=== PATIENT | female | born 1990 | race Caucasian/White ===

== ENCOUNTER 2020-03-28 07:47 | Outpatient (REF) | payer OTHER, SELFPAY ==
[2020-03-28 09:29] LABS: COVID-19 Test Negative (Negative)
== END 2020-03-28 07:48 | disposition home or self-care (01) ==
LOC: HO.LAB 07:47
PROVIDERS: Visit Provider Internal Medicine
DX: Z20.828 Contact with and (suspected) exposure to other viral communicable diseases (principal)
CPT/HCPCS: 87635; C9803

== ENCOUNTER 2020-04-03 13:09 | Outpatient (REF) | payer OTHER, SELFPAY ==
[2020-04-04 06:16] LABS: COVID-19 Test Negative (Negative); IDNOW Serial# 55D5AD1C
== END 2020-04-03 13:10 | disposition home or self-care (01) ==
LOC: HO.EMPCOV 13:09
PROVIDERS: PCP Internal Medicine; Visit Provider Internal Medicine
DX: Z20.828 Contact with and (suspected) exposure to other viral communicable diseases (principal)
CPT/HCPCS: 87635; C9803

== ENCOUNTER 2020-04-08 07:53 | Outpatient (REF) | payer OTHER, SELFPAY ==
[2020-04-08 09:10] LABS: COVID-19 Test Negative (Negative)
== END 2020-04-08 07:54 | disposition home or self-care (01) ==
LOC: HO.EMPCOV 07:53
PROVIDERS: PCP Internal Medicine; Visit Provider Internal Medicine
DX: Z20.828 Contact with and (suspected) exposure to other viral communicable diseases (principal)
CPT/HCPCS: 87635; C9803

== ENCOUNTER 2020-04-18 07:46 | Outpatient (REF) | payer OTHER, SELFPAY ==
[2020-04-18 08:06] LABS: COVID-19 Test Negative (Negative)
== END 2020-04-18 07:47 | disposition home or self-care (01) ==
LOC: HO.EMPCOV 07:46
PROVIDERS: Visit Provider Internal Medicine
DX: Z20.828 Contact with and (suspected) exposure to other viral communicable diseases (principal)
CPT/HCPCS: 87635; C9803

== ENCOUNTER 2020-07-12 08:08 | Outpatient (REF) | payer OTHER, SELFPAY ==
[2020-07-12 08:31] LABS: COVID-19 Test Negative (Negative)
== END 2020-07-12 08:09 | disposition home or self-care (01) ==
LOC: HO.EMPCOV 08:08
PROVIDERS: Visit Provider Internal Medicine
DX: Z20.822 Contact with and (suspected) exposure to COVID-19 (principal)
CPT/HCPCS: 36415; 87635; C9803

== ENCOUNTER → 2020-11-07 10:50 | Outpatient (BNVA) | payer OTHER, SELFPAY | PROVIDERS: PCP Internal Medicine; Referring Provider Internal Medicine; Visit Provider Surgery ==

== ENCOUNTER 2020-11-20 07:33 | Day surgery (SDC) | payer OTHER, SELFPAY ==
--- NOTE | 2020-11-19 08:20 | P.CONAN_ITS ---
Documented by User: Brianna Tyler 11/19/20 08:26 HPI - Anesthesia Eval Consult details Narrative: 30yo F for Cholecystectomy Laparoscopic, Poss Open [facility] Active Problems Active Problems: All Active Problems (Updated 11/07/20 @ 12:21 by Darius Gamino MD) Cholecystitis, acute with cholelithiasis (Acute) Gallstones (Acute) GERD (gastroesophageal reflux disease) (Acute) Past Medical History Medical History Gallstones GERD (gastroesophageal reflux disease) Surgical History Surgical History History of in vitro fertilization Social History Social History Alcohol intake: never Patient Tobacco Use Status: Never used Tobacco Second Hand Smoke Exposure: No Use of substances other than those prescribed or required for medical reasons: No Are you DNR?: No Advance Directives: No Advance Directives Information Provided: Yes Advance Directives on File: No Nutrition Risks: No Nutritional Risk Meds Allergies Allergy/AdvReac Type Severity Reaction Status Date / Time No Known Allergies Allergy Unverified 01/25/20 16:51 [No Known Allergies*] Home Medications Medication Instructions Recorded Confirmed Last Taken Type vitamin with calcium 1 tab PO DAILY 11/07/20 11/07/20 Unknown History no.72-iron 27 mg-folic acid 1 mg tablet Exam Exam Date and Time: November 19, 2020 0820 Pertinent Lab Results Pertinent Lab Results: Labs reviewed from [facility]. CBC, BMP. LIVP elevated. Assessment and Plan Assessment Anesthesia Assessment: Chart Reviewed Documented by User: Duran Campos MD 11/20/20 09:07 [facility] Past Medical History Medical History Gallstones GERD (gastroesophageal reflux disease) Family History Family history of problems with anesthesia: No Surgical History Surgical History History of in vitro fertilization History of Problems with Anesthesia: No Social History Social History Alcohol intake: never Patient Tobacco Use Status: Never used Tobacco Second Hand Smoke Exposure: No Use of substances other than those prescribed or required for medical reasons: No Are you DNR?: No Advance Directives: No Advance Directives Information Provided: Yes Advance Directives on File: No Nutrition Risks: No Nutritional Risk Meds Allergies Allergy/AdvReac Type Severity Reaction Status Date / Time No Known Allergies Allergy Unverified 01/25/20 16:51 [No Known Allergies*] Home Medications Medication Instructions Recorded Confirmed Last Taken Type vitamin with calcium 1 tab PO DAILY 11/07/20 11/07/20 Unknown History no.72-iron 27 mg-folic acid 1 mg tablet Exam Airway Mallampati Class: I TM Dist: >3cm Neck ROM: Full Loose/Missing/Broken Teeth: No Heart: ok Lungs: ok Assessment and Plan Assessment Anesthesia Assessment: Anesthesia Plan Discussed and Chart Reviewed Final Anesthetic Review NPO: Yes ASA Class: II Final Preanesthetic Review: No Changes in Pt Med Stat, Consent Obtained/Reviewed and Anes Risks/Benef Reviewed Patient Risk: Low Procedure Risk: Intermediate Anesthetic Plan Anesthetic Plan: GA and Agree w/ Assess. and Plan Disposition: Standard PACU
[2020-11-20] VITALS (13 sets, daily range): BP systolic 115–132; BP diastolic 62–78; PULSE 53–77; RESP 16–18; TEMP 36.4–37.3; O2SAT 98–100; BMI 32.9
[2020-11-20 07:51] LABS: UPreg QC Valid YES; Urine Pregnancy NEGATIVE (NEGATIVE)
[2020-11-20] MEDS: Lactated Ringers 1,000 ML 100 ML IVCONT (08:07)
[2020-11-20] MEDS: cefoTEtan disodium 2 GM in 0.9 % Sodium Chloride 50 ML IV (08:07)
--- NOTE | 2020-11-20 08:44 | MHC.SHP ---
Pre-Procedural Eval Section A Date of Service: 11/20/20 The patient is an INPATIENT: No Changes since office visit: Yes Patient answered all questions; No Cold of Flu in the past 2 weeks, No New Medical Problems and No Changes in Medication The History & Physical has been completed within 30 days and I have reviewed it.: Yes Section B Chief Complaint: Cholecystitis, acute with cholelithiasis Allergies: Allergies Allergy/AdvReac Type Severity Reaction Status Date / Time No Known Allergies Allergy Unverified 01/25/20 16:51 [No Known Allergies*] Plan Diagnosis/Plan: Unchanged I have reviewed the history and physical and performed a pertinent physical examination on my patient. No changes have occurred unless specified.
--- NOTE | 2020-11-20 10:22 | P.OP_ITS ---
Operative Note Operative Note Date of Service: 11/20/20 Narrative: Preoperative diagnosis: Symptomatic cholelithiasis Postoperative diagnosis: Same Procedure: Laparoscopic cholecystectomy Surgeon: Darius Gamino MD Chrome Polisher: No physician Anesthesia: General endotracheal Indications for procedure: 30-year-old female with complaints of abdominal pain in the right upper quadrant found to have gallstones within the gallbladder. She presents today for laparoscopic or possible open cholecystectomy. Operative findings: Normal appearing gallbladder with mild adhesions to the undersurface suggestive of a prior history of cholecystitis Specimen: Gallbladder Estimated blood loss: 2 mL Complications: None Procedure details: Patient was brought to the OR and placed in a supine position. After administering general anesthesia the patient's abdomen was prepped with ChloraPrep and draped in a sterile fashion. Local anesthesia consisting of 0.25% Sensorcaine with epinephrine was infiltrated in a periumbilical region. A 5 mm incision was made above the umbilicus in a transverse fashion. The Veress needle was then inserted while elevating abdominal cavity with towel clips. After positive drop test the abdomen was insufflated to a pressure of 15 mm of mercury. The Veress needle was then removed and a 5 mm trocar inserted. The camera was inserted in the abdomen explored. A 12 mm trocar was then placed in the epigastrium and two 5 mm trocars placed in the right upper quadrant. The patient was placed in reverse Trendelenburg positioning and rotated to the left. The gallbladder was grasped with the fundus and retracted cephalad.. The infundibulum was then grasped and retracted away from the liver bed. The Dolphin dissected was then used to dissect the peritoneum off the infundibulum to reveal the junction with the cystic duct. Cystic artery was noted slightly medial and posterior to the cystic duct. After obtaining a critical view the cystic duct was doubly clipped and divided. The cystic artery was then doubly clipped and divided. The gallbladder was then dissected off the liver bed using electrocautery with an L hook. Hemostasis was assured all times using the electrocautery. When the gallbladder is completely dissected off the liver bed was placed in an Endo-Catch bag and brought out through the epigastric incision. The gallbladder was sent to pathology for further examination. The abdomen was then re-examined. The liver bed was irrigated and suctioned dry. No bleeding or bile leak could be identified. CO2 was then evacuated and all trocars removed. Fascia was closed at the epigastric incision using a [id number] 0 Polysorb suture. Skin was closed in all incisions using a subcuticular 4 0 Polysorb suture. Surgical glue was used to close skin. The patient tolerated the procedure well. Sponge instrument and needle counts reported as correct. The patient was transferred to PACU in stable condition.
[2020-11-20] MEDS: Acetaminophen 325 MG TABLET 650 MG PO (10:57)
[2020-11-20] MEDS: oxyCODONE HCl Immed Release 5 MG TABLET PO (10:58)
[2020-11-20] MEDS: fentaNYL citrate/PF 100 MCG/2 ML VIAL 50 MCG IVPUSH ×2 (11:00→11:10)
== END 2020-11-20 12:31 | disposition home or self-care (01) ==
PROVIDERS: Nurse Practitioner; PCP Internal Medicine; Visit Provider Surgery
PROC: 0FT44ZZ Resection of Gallbladder, Percutaneous Endoscopic Approach (ICD-10-PCS; CPT 47562; principal; 2020-11-20 09:10)
DX: K80.12 Calculus of gallbladder with acute and chronic cholecystitis without obstruction (principal); K82.8 Other specified diseases of gallbladder; K21.9 Gastro-esophageal reflux disease without esophagitis
CPT/HCPCS: 47562; 81025; 88304; J1100; J1885; J2250; J2405; J3010

== ENCOUNTER → 2020-11-28 09:37 | Outpatient (BNVA) | payer OTHER, SELFPAY | PROVIDERS: PCP Internal Medicine; Referring Provider Internal Medicine; Visit Provider Surgery ==

== ENCOUNTER 2021-02-27 08:29 | Outpatient (REF) | payer OTHER, SELFPAY ==
[2021-02-27 09:29] LABS: TSH reflex Free T4 1.45 uIU/mL (0.32-4.0)
== END 2021-02-27 08:30 | disposition home or self-care (01) ==
LOC: HO.LAB 08:29
PROVIDERS: PCP Internal Medicine; Visit Provider Nurse Practitioner Family
DX: F41.8 Other specified anxiety disorders (principal)
CPT/HCPCS: 36415; 84443

== ENCOUNTER 2021-05-12 09:55 | Outpatient (REF) | payer OTHER, SELFPAY ==
[2021-05-12 10:40] LABS: COVID-19 Test Positive (Negative); IDNOW Serial# 16C4AD1C
== END 2021-05-12 09:56 | disposition home or self-care (01) ==
LOC: HO.LAB 09:55
PROVIDERS: Visit Provider Internal Medicine
DX: Z20.822 Contact with and (suspected) exposure to COVID-19 (principal)
CPT/HCPCS: 36415; 87635; C9803

== ENCOUNTER 2024-03-06 17:00 | Outpatient (AMB) | payer OTHER, SELFPAY ==
[2024-03-06 17:12] VITALS: BP 122/80; BMI 37.6
--- NOTE | 2024-03-06 17:12 | MHC.PC.OV ---
Vital Signs 03/06/24 17:12 Height 5 ft 3 in Weight 212 lb BMI 37.6 BP 122/80 Blood Pressure Location Lt brachial Position Sitting Intake Visit Reasons: PE Intake Note: Patient here for a physical exam Hamper Maker Required: No Accompanied by: Child Allergies No Known Allergies [No Known Allergies*] Allergy (Verified 03/06/24 17:23) Medication List - Last Reconciled 03/06/24 by Ankita Romero MD No Known Home Meds Tobacco use date assessed: 03/06/24 Dental Screening Dental Screen Date: 03/06/24 Did you have a dental visit in the last 12 months?: Yes Did you have a dental problem in the last 6 months where you did not have access to dental care?: No Was dental information given to patient?: Patient has dentist HPI HPI Comments History of Present Illness Details This is a 33 year old female with recurrent mild major depression with anxiety that comes for her physical exam. Last Pap smear was 2 years ago and was normal as per patient. No acute complaints. Depression with anxiety are in remission. [facility] Medical History (Updated 03/06/24 @ 17:29 by Ankita Romero MD) Recurrent mild major depressive disorder with anxiety Gallstones GERD (gastroesophageal reflux disease) Surgical History S/P laparoscopic cholecystectomy (11/20/20) History of in vitro fertilization Family History Mother No problems noted. Father No problems noted. Social History Housing: House Alcohol intake: never Patient Tobacco Use Status: Never used Tobacco e-Cigarette/Vaping Use: Never Used Second Hand Smoke Exposure: No service: No Current occupational status: employed Current occupational exposures/hazards: No Cognitive needs: No Hearing needs: No Vision needs: No Questionnaire PHQ-9 Over the last 2 weeks, how often have you been bothered by any of the following problems? 1. Little interest or pleasure in doing things: not at all 2. Feeling down, depressed, or hopeless: several days 3. Trouble falling or staying asleep, or sleeping too much: not at all 4. Feeling tired or having little energy: not at all 5. Poor appetite or overeating: not at all 6. Feeling bad about yourself - or that you are a failure or have let yourself or your family down: not at all 7. Trouble concentrating on things, such as reading the newspaper or watching television: not at all 8. Moving or speaking so slowly that other people could have noticed. Or the opposite - being so fidgety or restless that you have been moving around a lot more than usual: not at all 9. Thoughts that you would be better off or of hurting yourself in some way: not at all Total score: 1 Depression Screening Interpretation: Negative Depression Screening Done: Yes 41689 - PHQ-9 Billing: Yes Source: Developed by Drs. Kevin Carter, Cele Freire, Trey Yanes and colleagues, with an educational pawel from [employer]. Thrive Questionnaire Date Thrive assessed: 03/02/24 I am a: Patient What is your living situation today?: I have a steady place to live Within the past 12 months, did the food you bought not last and you didn't have the money to get more?: Never true Within the past 12 months, did you worry whether your food would run out before you got money to buy more?: Never true Do you have trouble paying for medicines?: No Do you have trouble getting transportation to medical appointments?: No Do you have trouble paying your heating and electricity bill?: No Do you have trouble taking care of your child, family member or friend?: No Do you have trouble with day-to-day activities such as bathing, preparing meals, shopping, managing finances, etc.?: No Are you currently unemployed and looking for a job?: No Are you interested in more education?: No Please select the resources that you would like help with: None Currently or been in a relationship where the following occur: No concerns reported THRIVE Score: 0 AUDIT C Alcohol Use Questionnaire (AUDIT-C) 1. How often do you have a drink containing alcohol?: Monthly or less 2. How many drinks containing alcohol do you have on a typical day when you are drinking?: 3 or 4 3. How often do you have six or more drinks on one occasion?: Never Total Score: 2 Score Reviewed/Action Taken: No SARA-7 AMB Questionnaire SARA-7 Date SARA - 7 assessed: 03/06/24 Feeling nervous, anxious, or on edge: 1 = Several days Not being able to stop or control worryin = Several days Worrying too much about different things: 1 = Several days Trouble relaxin = Several days Being so restless that it is hard to sit still: 1 = Several days Becoming easily annoyed or irritable: 1 = Several days Feeling afraid as if something awful might happen: 0 = Not at all Total SARA-7 score (0-4 normal; 5-9 mild; 10-14 moderate; 15-21 severe): 6 Source: Developed by Drs. Kevin Carter, Cele Freire, Trey Yanes and colleagues, with an educational pawel from [employer]. SARA-7 Assessment Billing SARA-7 Assessment Tool: SARA-7 Assessment 96240 Review of Systems Const All systems reviewed & are unremarkable except as noted in HPI and below Card Denies chest pain at rest, Denies chest pain with activity, Denies edema, Denies irregular heart rhythm, Denies claudication, Denies dyspnea, Denies dyspnea on exertion, Denies orthopnea, Denies paroxysmal nocturnal dyspnea and Denies slow heart rate Resp Denies cough, Denies dyspnea and Denies dyspnea on exertion GI Denies abdominal pain, Denies change in bowel habits, Denies excessive flatus, Denies nausea and Denies vomiting Neuro Denies lack of coordination Physical exam (Primary Care) Vital Signs: Last Vital Signs BP 122/80 03/06/24 17:12 BMI result Body Mass Index 37.6 BMI Assessment/Plan discussion: High BMI High, discussed plan: lifestyle, weight reduction, dietary and physical activity Tobacco/Smoking Status: Tobacco use Status Tobacco use date assessed 03/06/24 03/06/24 17:16 Patient Tobacco Use Status Never used Tobacco 03/06/24 17:16 e-Cigarette/Vaping Use Never Used 03/06/24 17:16 PHQ-9: PHQ-9 Score PHQ-9: Total score 1 03/06/24 17:25 Depression Screening Interpretation: Negative Thrive Assessment: Date of Thrive Assessment Date Thrive assessed 03/02/24 03/06/24 17:16 Currently or been in a relationship where the following occur: No concerns reported HENMT Head: Yes normal to inspection, Yes normocephalic and Yes atraumatic Ears: external ears normal Eyes General: appearance normal, both eyes and all related structures Eyelids: Yes eyelids normal Conjunctivae: conjunctivae normal Neck Neck: Yes normal visual inspection and Yes supple Resp Effort & Inspection: normal respiratory effort Auscultation: clear to auscultation bilaterally Cardio Jugular venous distension: no JVD Rate: regular rate Rhythm: regular rhythm Heart sounds: S1 normal heart sound present and S2 normal heart sound present GI Inspection: Yes normal to inspection Palpation (GI): Soft to palpation and nontender Auscultation: normal bowel sounds Skin General skin exam: no rashes or lesions noted Neuro General: no focal motor deficits Extrem General: Yes full ROM Psych Appearance: grossly normal Office Procedures Flu Questionnaire Does the patient have a severe egg allergy?: No Immunizations Fluarix Triv [id number] (PF) 45 mcg (15 mcg x 3)/0.5 mL IM syringe Performing Provider: Ankita Romero MD [facility] Documented (not given) by: LAURA Whatley on 03/06/24 17:18 Reason Not Given: Patient Refused Coding Level of Care Code Est Pt Prev Care 18-39y(45371) Diagnoses Physical exam Z00.00 Recurrent mild major depressive disorder with anxiety F33.0; F41.9 Additional Codes SARA-7 Assessment Billing - SARA-7 Assessment Tool: SARA-7 Assessment 95594 ([id number]) Time Spent (min) 31 Assessment & Plan Assessment & Plan (1) Physical exam: Code(s): Z00.00 - Encounter for general adult medical examination without abnormal findings Category: Medical Plan: Repeat in a year. (2) Recurrent mild major depressive disorder with anxiety: Code(s): F33.0 - Major depressive disorder, recurrent, mild; F41.9 - Anxiety disorder, unspecified Category: Medical Plan: In remission. Orders: Orders Influenza [id number] Immunization Today Z23 - Encounter for immunization Comprehensive Admire. Panel Fast Today Z00.00 - Encounter for general adult medical examination without abnormal findings Lipid Panel Today Z00.00 - Encounter for general adult medical examination without abnormal findings
== END 2024-03-06 17:31 | disposition home or self-care (01) ==
LOC: HO.HMCH 17:01
PROVIDERS: PCP Internal Medicine; Visit Provider Internal Medicine
DX: Z00.00 Encounter for general adult medical examination without abnormal findings (principal); F33.0 Major depressive disorder, recurrent, mild; F41.9 Anxiety disorder, unspecified; Z23 Encounter for immunization

== ENCOUNTER → 2024-03-06 17:00 | Outpatient (BNVA) | payer OTHER, SELFPAY | PROVIDERS: PCP Internal Medicine; Visit Provider Internal Medicine | DX: Z00.00 Encounter for general adult medical examination without abnormal findings (principal); F33.0 Major depressive disorder, recurrent, mild; F41.9 Anxiety disorder, unspecified; Z28.21 Immunization not carried out because of patient refusal | CPT/HCPCS: 90471; 96127 ==

== ENCOUNTER 2025-04-02 08:23 | Outpatient (REF) | payer OTHER, SELFPAY ==
[2025-04-02 11:16] LABS: Alanine Aminotransferase 38 U/L (0-31); Albumin Level 4.7 g/dL (3.5-5.0); Alkaline Phosphatase 58 U/L (39-117); Anion Gap 10 (12-20); Aspartate Amino Transferase 27 U/L (5-31); Blood Urea Nitrogen 7 mg/dL (9-16); Calcium 9.3 mg/dL (8.4-10.2); Carbon Dioxide 28 mmol/L (22-29); Chloride 105 mmol/L (96-108); Cholesterol 203 mg/dL (<200); Estimated Glomerular Filt Rate > 60; HDL Cholesterol 56 mg/dL (>40); Potassium 3.9 mmol/L (3.3-5.1); Sodium 139 mmol/L (135-145); Total Protein 8.0 g/dL (6.5-8.0); Triglycerides 128 mg/dL (<150)
== END 2025-04-02 08:24 | disposition home or self-care (01) ==
LOC: HO.LAB 08:23
PROVIDERS: PCP Internal Medicine; Visit Provider Internal Medicine
DX: Z00.00 Encounter for general adult medical examination without abnormal findings (principal); E78.5 Hyperlipidemia, unspecified; F33.0 Major depressive disorder, recurrent, mild; F41.9 Anxiety disorder, unspecified; R10.12 Left upper quadrant pain
CPT/HCPCS: 36415; 80053; 80061; 96127

== ENCOUNTER 2025-04-02 08:23 | Outpatient (AMB) | payer OTHER, SELFPAY ==
--- OUTSIDE RECORDS SUMMARY | 2025-04-02 08:31 | XMS_ITS | Clinical Summary ---
Author Organization [place] [address] [address] [facility] Building Address [facility] [place], [place] Phone Care Team Providers Care Technology Assistant Name Role Phone Ankita Romero MD Primary Care Provider [phone] Allergies No known active allergies Medications No known medications Surgical History Surgery Date Site/Laterality Comments MOUTH SURGERY PROCEDURE: ORAL SURGERY PROCEDURE CHOLECYSTECTOMY 10/2020 PROCEDURE: HISTORICAL CHOLECYSTECTOMY; COMMENT: at [place] Medical History Medical History Date Comments Infertility, female DX:Infertili ty, female; COMMENT: Male infertility- IBVF Migraine without aura DX:Migrain e without aura Family History Medical History Relation Name Comments Asthma Father Other: natural causes Maternal Grandmother Breast cancer Neg Hx Colon cancer Neg Hx Ovarian cancer Neg Hx Uterine cancer Neg Hx Relation Name Status Comments Father Alive Maternal Grandfather Maternal Grandmother Mother Alive Paternal Grandfather Paternal Grandmother Social History Tobacco Use Types Packs/Day Years Used Date Smoking Tobacco: Never Smokeless Tobacco: Never Tobacco Cessation:Counseling Given: Not Answered Alcohol Use Standard Drinks/Week Comments No 0 (1 standard drink = 0.6 oz pur e alcohol) Housing Instability Answer Date Recorde d Are you worried that in the next 2 months you may not have stable housing? No 12/11/2024 Food Access & Nutrition Answer Date Rec orded Do you have access to a vari ety of food including fruits and vegetables? Yes 12/11/2024 Access to Healthcare Answer Date Record ed Within the last 3 months, yvon w many times did you visit the emergency department for your medical care? 0 12/11/2024 Health Literacy Answer Date Recorded How often do you need to hav e someone help you when you read instructions, pamphlets, or other written material from your doctor or pharmacy? Never 12/11/2024 Caregiver: How often do you need to have someone help you when you read instructions, pamphlets, or other written material from your doctor or pharmacy? Not on file 12/11/2024 Financial Risk Answer Date Recorded How hard is it for you to pa y for the very basics like food, housing, medical care, and air conditioning / heating? Not very hard 12/11/2024 Transportation Answer Date Recorded Has the lack of transportati on kept you from meetings, work, or from getting things needed for daily living? No Has the lack of transportati on kept you from medical appointments or from getting medications? No 12/11/2024 Social Isolation Answer Date Recorded How often do you feel lonely or isolated from ose around you? Never 12/11/2024 Food Risk Answer Date Recorded Within the past 12 months we worried whether our food would run out before we got money to buy more. Never true 12/11/2024 Within the past 12 months th e food we bought just didn't last and we didn't have money to get more. Never true 12/11/2024 Dependent Care Answer Date Recorded Do you need help finding or paying for care for your loved ones. For example, child development consultant or elderly care for an older adult? No 12/11/2024 Education Answer Date Recorded Do you think completing more education or training, like finishing a GED, going to college, or learning a trade, would be helpful for you? No 12/11/2024 Employment and Income Answer Date Recor ded During the last four weeks, have you been actively looking for work? No 12/11/2024 Living Situation Answer Date Recorded What is your living situation? Unrecognized valu e 12/11/2024 Comments No Sex and Gender Information Value Date Recorded Sex Assigned at Not on file Legal Sex Female 3:09 PM EST Gender Identity Not on file Sexual Orientation Not on file Obstetrics History Para Term AB IAB SAB Ectopic Multiple Livin g Live Births 2 2 2 2 2 Date Outcome GA Total Labor Labor/2nd/3rd Weight Sex Type Anes PTL Tanesha A1 A5 Name Clin 2011 Term 41w 0d 3118 g (110 oz) F Vag-S pont Epidur al Livin g Delivery Location:CT 2020 Term 39w 5d 1h 40m 1h 18m/0h 10m/0h 12m 2948 g (104 oz) F [place] nettles N Ariana g 8 9 Ravin elizalde CNM Delivery Location:[facility] Comments:IVF Last Filed Vital Signs Vital Sign Reading Time Taken Comments Blood Pressure 126/94 12/12/2024 9:17 AM EDT Pulse 69 12/12/2024 9:17 AM EDT Temperature - - Respiratory Rate 18 12/12/2024 9:17 AM EDT Oxygen Saturation - - Inhaled Oxygen Concentration - - Weight 99.8 kg (220 lb) 12/12/2024 9:17 AM EDT Height 160 cm (5' 3 ) 12/12/2024 9:17 AM EDT Body Mass Index 38.97 12/12/2024 9:17 AM EDT Plan of Treatment Health Maintenance Due Date Last Done Comments Hepatitis B Vaccines (1 of 3 - 19+ 3-dose series) 2010 HPV Vaccines (1 - 3-dose SCDM series) 2018 HIV Screening 04/08/2022 Hepatitis C Screening 04/08/2022 Cervical Cancer Screening: Pap Smear 04/24/2023 04/24/2020 COVID-19 Vaccine ( - 2024- season) 2025 01/07/2021, 12/04/2020 Influenza Vaccine (#1) 2025 9, 02/22/2018, 03/04/2017, Additional history exists Social Influencers of Health Screening 12/11/2025 12/11/2024 DTaP,Tdap,and Td Vaccines (4 - Td or Tdap) 08/01/2030 08/01/2020, 09/14/2014, 10/13/2011 RSV Immunization Adult Patients (1 - 1-dose 75+ series) 2066 MMR Vaccines Aged Out 09/21/2014 No longer eligi ble based on patient's age to complete this topic Depression Screening Completed 12/11/2024 HIB Vaccines Aged Out No longer eligi ble based on patient's age to complete this topic Hepatitis A Vaccines Aged Out No long er eligible based on patient's age to complete this topic IPV Vaccines Aged Out No longer eligi ble based on patient's age to complete this topic Meningococcal ACWY Vaccine Aged Out N o longer eligible based on patient's age to complete this topic Meningococcal B Vaccine Aged Out No l onger eligible based on patient's age to complete this topic Pneumococcal Vaccine: Pediatrics (0 to 5 Years) and At-Risk Patients (6 to 49 Years) Aged Out No longer eligible based on patient's age to complete this topic RSV Immunization Patients Under 20 months Aged Out No longer eligible based on patient's age to complete this topic Varicella Vaccines Aged Out No longer eligible based on patient's age to complete this topic Procedures Procedure Name Priority Date/Time Associated Diagnosis Comments PAP SMEAR Routine 04/24/2020 from Last 3 Months or Most Recently Relevant to Health Maintenance Results * Pap smear (04/24/2020) 04/24/2020 Narrative HISTORICAL TESTING LAB RESULTING AGENCY - 04/26/2020 2:45 PM EST [id number] THINPREP PAP, IMAGED: NEGATIVE FOR SQUAMOUS INTRAEPITHELIAL LESION AND MALIGNANCY . FERMÍN IS PRESENT. HARDIK PALACIO(ASCP) (CASE ELECTRONICALLY SIGNED 04 26 2020) ADEQUACY: SATISFACTORY ENDOCERVICAL/TRANSFORMATION ZONE COMPONENT ABSENT. SOURCE: THINPREP PAP HPV IF ASCUS, CERVICAL, IMAGED CLINICAL INFORMATION: HPV IF DIAGNOSIS OF ASCUS. , PAP HX NEG, PT IS . Z12.4 Allie Aguilar DO LAB CYTOLOGY ORDERABLES Final Result HISTORICAL TESTING LAB RESULTING AGENCY from Last 3 Months or Most Recently Relevant to Health Maintenance Insurance [facility] Care Teams Technology Assistant Relationship Specialty Start Date End Date Ankita Romero MD [facility] , [address] Physician Associ D/B/A: [facility] FREDA Diallo PCP - General 11/05/22
--- OUTSIDE RECORDS SUMMARY | 2025-04-02 08:31 | XMS_ITS | Clinical Summary ---
Author Organization [facility] Address [address] [place] [address] Care Team Providers Care Assistant Professor Name Role Phone Unavailable Primary Care Provider Unavailabl e Social History Tobacco Use Types Packs/Day Years Used Date Smoking Tobacco: Never Assessed Comments Unknown Sex and Gender Information Value Date Recorded Sex Assigned at Not on file Legal Sex Female 5:31 PM EDT Gender Identity Not on file Sexual Orientation Not on file Plan of Treatment Health Maintenance Due Date Last Done Comments Hepatitis C Virus Screening 1991 HIV Screening 2004 DTaP/Tdap/Td Vaccines (1 - Tdap) 2010 Hepatitis B Vaccines (1 of 3 - 19+ 3-dose series) 2010 COVID-19 Vaccine (2023-2 5 season) 2025 HPV Vaccines (No Doses Required) Completed Pneumococcal Vaccine: Pediat benny (0-5 Years) and At-Risk Patients (6 to 49 Years) Aged Out No longer eligible b ased on patient's age to complete this topic
--- OUTSIDE RECORDS SUMMARY | 2025-04-02 08:31 | XMS_ITS | Patient Health Record ---
Author Organization [employer] [facility] Address [address] [place] [address] Care Team Providers Care Manufacturing Shift Supervisor Name Role Phone COLE HUTCHINSON Primary Care Provider Yanira Awa Hardy Unavailable [phone] Reason For Referral No Information Immunizations Vaccine Route Administration Date Status Comme nts HPV (human papillomavirus), bivalent, 3 dose schedule IM Intramuscular 06/13/2014 Administered HPV (human papillomavirus), quadrivalent, 3 dose schedule IM Intramuscular 08/14/2014 Administered HPV (human papillomavirus), quadrivalent, 3 dose schedule IM Intramuscular 01/07/2015 Administered Problems No Known Problems Plan Of Treatment No Information Insurance Providers Payer Name Payer Address Payer Phone Subscriber Number Group Number Insured Name Patient Relationship to Insured Coverage Start Date Coverage End Date [facility] [address] [place] [address] [id number] DEMETRA CHEUNG Self - patient is the insured
--- OUTSIDE RECORDS SUMMARY | 2025-04-02 08:31 | XMS_ITS | Data Portability ---
Author Organization [facility], [facility] Address [address] [place] [address] Care Team Providers Care Irrigator Head Name Role Phone CONCHITA HUNTER Primary Care Provider [phone] Assessment No assessment recorded. Plan of Treatment Reminders Order Date Submit Date Provider Last Modified By Organization Details Last Modified Time Details Appointments None recorded. Lab rapid strep group A, throat 2023 024 [email or web address] 247 [facility] [address], [address] [place], [address], 4 08:35:36 rapid strep group A, throat 2022 023 [email or web address] 5 [facility] [address] [place], [address], 3 15:50:46 rapid strep group A, throat 2022 023 [email or web address] [facility] [address] [place], [address], 3 11:28:01 Referral None recorded. Procedures None recorded. Surgeries None recorded. Imaging None recorded. Medication Orders amoxicillin 500 mg capsule 2023 024 [id number], [address], [place], [phone], 4 08:35:41 amoxicillin 500 mg capsule 2022 024 EDWAR [facility] #[id number], [address] , [place], [place], [phone], 4 08:06:32 amoxicillin 875 mg tablet 2022 023 gloria fernando [facility] #[id number], [address], [place], [place], [phone], 3 15:19:02 Patient TargetsNo targets recorded. Patient Instructions Encounter Date Encounter Id Patient Instructions Last Modified By Organization Details Last Modified Time 09/16/2022 [id number] sore throat: car e instructions [email or web address] Not available 09/16/2022 15:50:46 strep throat: care instructions [email or web address] Not available 09/16/2022 15:50:46 Take the antibiotic as prescribed. Drink plenty of fluids. Gargle with warm salty water several times daily. Obtain a new toothbrush in 2 days. Follow-up with your doctor if no improvement in a few days. Seek Emergency Medical evaluation for any worsening symptoms. Not available 09/16/2022 15:52:01 Reason for Referral None Reported. Results Created Date Observation Date Name Description Value Unit Range Abnormal Flag Note LastModifiedBy Organization Detail LastModifiedTime 07/16/1907/15/2022 rapid strep group A, throa t Unknown Analyte Normal = Negati ve Not Available [address] [place], [address], 07/15/2022 10:15:19 07/16/19 23 07/15/2022 rapid strep group A, throa t Unknown Analyte negati ve Not Available [address] [place], [address], 07/15/2022 10:15:19 09/17/19 23 09/16/2022 rapid strep group A, throa t Unknown Analyte Normal = Negati ve Not Available [address] [place], [address], 09/16/2022 15:21:25 09/17/19 23 09/16/2022 rapid strep group A, throa t Unknown Analyte positi ve Not Available [id number] [place], [address], 09/16/2022 15:21:25 08/24/19 24 08/24/2023 rapid strep group A, throa t Unknown Analyte positi ve Not Available [address] [place], [address], 08/24/2023 08:08:57 08/24/1908/24/2023 rapid strep group A, throa t Unknown Analyte yes Not Available _ [facility] [address] [place], [address], 08/24/2023 08:08:57 Result Notes None recorded. Problems No Known Problems Procedures Surgical History Date Name Laterality Status Provider Name and Address Organization Details Recorded Time 05/10/19 21 cholecystectomy completed Nitza Knutson [facility] 07/15/2022 10:13:12 Imaging Results None recorded. Procedure Notes None recorded. Medical Equipment None Reported. Allergies No known drug allergies Medications Name Sig Start Date Stop Date Status Note LastModified by Organization Details LastModified Time amoxicillin 500 mg capsule Take 1 capsule twice a day by oral route for 10 days. 2023 active Not Available Not Available Not Avai lable Mirena 21 mcg/24 hr (up to 8 years) 52 mg intrauterin e device Take by intrauter ine route. active Not Available Not Available No t Available amoxicillin 875 mg tablet TAKE 1 TABLET BY MOUTH EVERY 12 HOURS FOR 10 DAYS 09/16 completed Not Available Not Available Not Available Vitals Date Recorded Body height Body mass index (BMI) Body weight Pain severity - 0-10 verbal numeric rating [Score] - Reported Provider Name and Address Organization Details Last Updated DateTime 07/15/2022 160.02 cm 32.6 kg/m2 58078 g 6 Nitza Fishum [facility] 07/15/2022 10:14:11 Date Recorded Body height Body mass index (BMI) Body weight Heart rate Respiratory rate Body temperature Systolic And Diastolic Provider Name and Address Organization Details Last Updated DateTime 4 160.02 cm 36.3 kg/m2 82859.4 4 g 83 /min 18 /min 97.9 [degF] 104/73 mm[Hg] Zara Albert [place] - [facility] 4 08:07:34 Date Recorded Body height Body mass index (BMI) Body weight Pain severity - 0-10 verbal numeric rating [Score] - Reported Respiratory rate Oxygen saturation Heart rate Body temperature Systolic And Diastolic Provider Name and Address Organization Details Last Updated DateTime 3 160.02 cm 32.6 kg/m2 49162 g 10 18 /min 99 % 96 /min 97.3 [degF] 107/72 mm[Hg] CRISTHIAN CEJA RA [place] - [facility] 3 15:20:57 Social History Question Answer Notes LastModified by [employer] Details LastModified Time Tobacco Smoking Status Never Smoker Nitza Garrett william [place] - [facility] 07/15/2022 10:13:00 Have You Had A Flu Shot This Season? No [email or web address] Information not available 08/24/2023 Have You Had Direct Contact, Or Contact During Intimacy, With Monkeypox Rash, Scabs, Or Body Fluids From A Person With Monkeypox? No Information not available 09/16/2022 What Was The Date Of Your Most Recent Tobacco Screening? 08/24/2023 [email or web address] Information not available 08/24/2023 Have You Recently Traveled Abroad? No Information not available 09/16/2022 Sex: Unknown Functional Status Question Answer Note LastModified by [employer] Details LastModified Time Do you use any illicit or recreational drugs? No [email or web address] Information not available 07/15/2022 Do you or have you ever used any other forms of tobacco or nicotine? No [email or web address] Information not available 07/15/2022 What is your level of alcohol consumption? Occasional [email or web address] Information not available 07/15/2022 Mental Status None recorded. Family History Relationship Description Onset Age of this Age Resolved Age Notes LastModified by Organization Details LastModified Time Father No current problems or disability [email or web address] Not available 15:19:17 Mother No current problems or disability [email or web address] Not available 15:19:17 Medical History No medical history recorded. Gynecological History Statement/Question Response Date of LMP Is there any chance of ? No Obstetrics History GPAL:G 0 P 0 0 0 0 Immunizations Vaccine Type Date Status Note Provider Nam e and Address Organization Details Recorded Time Influenza, split virus, quadrivalent, preservative 7 completed Nitza Garrett null, [place] - [facility] 07/15/2022 10:14:28 Influenza, split virus, quadrivalent, preservative 8 completed Nitza Garrett null, [place] - [facility] 07/15/2022 10:14:28 Influenza, split virus, quadrivalent, preservative 7 completed Nitza Garrett null, PA - [facility] 07/15/2022 10:14:28 COVID-19, mRNA, LNP-S, PF, 100 mcg/0.5mL dose or 50 mcg/0.25mL dose 1 completed Nitza Garrett null, [place] - [facility] 07/15/2022 10:14:28 COVID-19, mRNA, LNP-S, PF, 100 mcg/0.5mL dose or 50 mcg/0.25mL dose 1 completed Nitza Garrett null, PA - [facility] 07/15/2022 10:14:28 Tdap 1 completed Nitza Garrett null, PA - [facility] 07/15/2022 10:14:28 Tdap 2 completed Nitaz Garrett null, PA - [facility] 07/15/2022 10:14:28 Influenza, split virus, quadrivalent, PF 9 completed Nitza Garrett null, PA - [facility] 07/15/2022 10:14:28 Past Encounters Encounter ID Performer Location Encounter Start Date Encounter Closed Date Diagnosis/Indication Diagnosis SNOMED-CT Code Diagnosis ICD10 Code Diagnosis IMO Codes Diagnosis Note [id number] [facility] [facility] [address] [facility] [place] [address] 10/31/2021 12:19:07 10/31/2021 13:06:14 [id number] Jessica Boland MD [facility] [address] [place] [address] 07/15/2022 09:25:41 07/15/2022 11:33:14 Acute pharyngitis 677302702 J02.9 Use over the counter medication s for your sore throat. Basic lozenges (cough drops) or lozenges with an anesthetic (numbing agent) can be used as needed for quick results; look for the active ingredient , benzocaine , for numbing lozenges (like Cepacol Extra or Chlorasept ic Max). Gargling with warm salt water can also relieve pain. Dissolve 1/4 to 1/2 teaspoon in 8-ounces of warm water; gargle and spit salt solution every hour, as needed. Sore throat pain can also be reduced by taking regular doses of acetaminop hen (tylenol) or ibuprofen (Advil); if you are given a prescripti on of PREDNISONE , you may continue to take acetaminop hen, but do not take ibuprofen or naprosyn. While this isn't quick, it can significan tly reduce pain within an hour after taking. Please consult our office promptly if you develop any of the following symptoms: 1. A fever of at least 101 F or 38.4 C2. Throat pain that is severe or does not start to improve within 5 to 7 days Call for an ambulance or go to the emergency room if you:1. Have trouble breathing2 . Cannot control your saliva (drooling) due to difficulty swallowing 3. Have swelling of the neck or tongue4. Cannot move your neck or have trouble opening your mouth [id number] Josefina Car MD [facility] [address] [place] [address] 09/16/2022 11:56:04 11/03/2022 18:45:36 Left without being seen [id number] 9102 Z53.21 [id number] Josefina Car [place] [address] [facility] [address] [place] [address] 09/16/2022 14:24:30 09/16/2022 15:56:09 Streptococcal sore throat 33486491 J02.0 [id number] VIK KIMBALL MD [address] [facility] [address] [place] [address] 08/24/2023 08:03:06 08/24/2023 08:36:49 Streptococcal sore throat 68907368 J02.0 Sore throatClea r liquids for comfortFre sh Quintin Root Tea-Cut up fresh quintin root and boil it till fragrant. drink the liquid as a tea. Can add Honey to taste. Also For Sore Throat:Thr oat Comfort Tea (by [employer])Thro at Coat Tea ( by [employer] ) Clear broth soup: Vegetable, Chicken or Beef as tolerated. Salt Water GarglesMix 1 teaspoonfu l of salt in a glass of warm water. Gargle and spit out the salt water mixture one mouthful at a time until the glass is empty. Repeat 4 times daily. Health Concerns Section Related Observation LastModified by Organization Detai ls LastModified Time None Recorded Concern Status LastModified by Organization Details LastModified Time None Recorded Advance Directives Directive None Recorded Payers Insurance Date Sequence Insurance Name Policy Number Policy Corona Covered Member ID Corona Member ID Guarantor Name 08/24/2023 1 ISABELLA [id number] Morelia Villarreal [id number] Morelia Villarreal Notes Date Note Type Note Provider Name and Address Organization Details Recorded Time 3 text/html Sore throatReported by PatientSore ThroatFor location, patient reportsthroat. For onset/timing, patient reports2 days. For associated symptoms, patient reportsno cough,no sputum production,no shortness of breath,no wheezing,no sinus pain,no vomiting,no nausea, andno hoarseness. Jessica Boland MD [address] [place] [address] [place], [address], [place] - [facility] 07/15/2022 11:28:56 3 text/html Sore throatReported by PatientSore ThroatFor source of patient information, patient reportsinformation obtained from patientandpatient arrived at urgent care ambulatory. For location, patient reportsthroat. For severity, patient reportsmoderate. For quality, patient reportshurts to swallow. For onset/timing, patient reports2 days. For associated symptoms, patient reportsno cough,no sputum production,no shortness of breath,no wheezing,no sinus pain,no vomiting,no nausea, andno hoarseness. For context, patient reportsno sick contacts.32 year old female presenting for evaluation of a sore throat, fever and tender neck glands for the past2 days. No rash, headache, stiff neck, ear pain, cough, chest pain, shortness of breath, GI symptoms or body aches. Josefina Car MD [address] [place], [address], [facility] 09/18/2022 15:00:28 4 text/html Sore throatReported by PatientSore ThroatFor location, patient reportsthroat. For severity, patient reportsmoderate. For quality, patient reportssharpandhurts to swallow. For onset/timing, patient reports1 days. For associated symptoms, patient reportsno cough,no sputum production,no shortness of breath,no wheezing,no sinus pain,no vomiting,no nausea, andno hoarseness. For context, patient reportsno sick contacts,no foreign travel, andnon-smoker. VIK KIMBALL MD [address] [place], [address], [place] - [facility] 08/24/2023 08:37:53 OBGyn Episode No OBEpisode recorded.
--- NOTE | 2025-04-02 08:57 | A.OFFPC_ITS ---
Vital Signs 04/02/25 08:58 Height 5 ft 3 in Weight 209 lb 6 oz BMI 37.1 BP 110/78 Blood Pressure Location Lt brachial Position Sitting Pulse 66 Pulse Source Pulse Oximeter Pulse Oximetry (%) 96 Oxygen Delivery Method Room Air Intake Visit Reasons: annual rescheduled Manufacturing Software [employer] Required: No Accompanied by: Self / Same As Patient Allergies No Known Allergies (No Known Allergies*) Allergy (Verified 04/02/25 09:15) Medication List - Last Reconciled 04/02/25 by Ankita Romero MD No Known Home Meds Tobacco use date assessed: 04/02/25 Dental Screening Dental Screen Date: 04/02/25 Did you have a dental visit in the last 12 months?: Yes Did you have a dental problem in the last 6 months where you did not have access to dental care?: No Was dental information given to patient?: Patient has dentist HPI HPI Comments History of Present Illness Details The patient is a 34 year old individual presenting for a physical exam. The patient reports a new issue of sharp pain located under the breast in left upper quadrant abdomen which occurs at random moments while sitting, walking, or lying down and is not associated with exertion. The patient has a history of mild depression, which manifests for one or two days at a time and resolves without medication or counseling. The patient also experiences migraines that come and go, managed by taking time off from work and computer use. Past surgical history includes a cholecystectomy in 2020 and in vitro fertilization. The patient's last cholesterol check was slightly elevated but did not require medication. The last Pap smear was three years ago and was normal. The patient reports no known allergies and is not taking any medications. Family history is significant for a mother and father who are alive and healthy. [facility] Medical History (Updated 04/02/25 @ 09:32 by Ankita Romero MD) Recurrent mild major depressive disorder with anxiety Gallstones GERD (gastroesophageal reflux disease) Surgical History S/P laparoscopic cholecystectomy (11/20/20) History of in vitro fertilization Family History Mother No problems noted. Father No problems noted. Social History (Updated 04/02/25 @ 09:21 by Ankita Romero MD) Housing: House Alcohol intake: current Alcohol intake frequency: holidays/special occasions only Patient Tobacco Use Status: Never used Tobacco e-Cigarette/Vaping Use: Never Used Second Hand Smoke Exposure: No service: No Current occupational status: employed Current occupational exposures/hazards: No Cognitive needs: No Hearing needs: No Vision needs: No Questionnaire PHQ-9 Over the last 2 weeks, how often have you been bothered by any of the following problems? 1. Little interest or pleasure in doing things: more than half the days 2. Feeling down, depressed, or hopeless: several days 3. Trouble falling or staying asleep, or sleeping too much: several days 4. Feeling tired or having little energy: several days 5. Poor appetite or overeating: more than half the days 6. Feeling bad about yourself - or that you are a failure or have let yourself or your family down: several days 7. Trouble concentrating on things, such as reading the newspaper or watching television: several days 8. Moving or speaking so slowly that other people could have noticed. Or the opposite - being so fidgety or restless that you have been moving around a lot more than usual: not at all 9. Thoughts that you would be better off or of hurting yourself in some way: not at all Total score: 9 Depression Screening Interpretation: Positive Depression Screening Follow-up: Existing condition and Follow-up Visit Requested Depression Screening Done: Yes 33316 - PHQ-9 Billing: Yes Source: Developed by Drs. Kevin Carter, Cele Freire, Trey Yanes and colleagues, with an educational pawel from [employer]. Thrive Questionnaire Date Thrive assessed: 04/02/25 I am a: Patient What is your living situation today?: I have a steady place to live Within the past 12 months, did the food you bought not last and you didn't have the money to get more?: Never true Within the past 12 months, did you worry whether your food would run out before you got money to buy more?: Never true Do you have trouble paying for medicines?: No Do you have trouble getting transportation to medical appointments?: No Do you have trouble paying your heating and electricity bill?: No Do you have trouble taking care of your child, family member or friend?: No Do you have trouble with day-to-day activities such as bathing, preparing meals, shopping, managing finances, etc.?: No Are you currently unemployed and looking for a job?: No Are you interested in more education?: No Please select the resources that you would like help with: None Currently or been in a relationship where the following occur: No concerns reported THRIVE Score: 0 AUDIT C Alcohol Use Questionnaire (AUDIT-C) 1. How often do you have a drink containing alcohol?: 2-4 times a month 2. How many drinks containing alcohol do you have on a typical day when you are drinking?: 1 or 2 3. How often do you have six or more drinks on one occasion?: Never Total Score: 2 Score Reviewed/Action Taken: No SARA-7 AMB Questionnaire SARA-7 Date SARA - 7 assessed: 04/02/25 Feeling nervous, anxious, or on edge: 2 = More than half the days Not being able to stop or control worryin = Several days Worrying too much about different things: 1 = Several days Trouble relaxin = Several days Being so restless that it is hard to sit still: 0 = Not at all Becoming easily annoyed or irritable: 1 = Several days Feeling afraid as if something awful might happen: 0 = Not at all Total SARA-7 score (0-4 normal; 5-9 mild; 10-14 moderate; 15-21 severe): 6 Source: Developed by Drs. Kevin Carter, Cele Freire, Trey Yanes and colleagues, with an educational pawel from [employer]. SARA-7 Assessment Billing SARA-7 Assessment Tool: SARA-7 Assessment 29246 Review of Systems Const All systems reviewed & are unremarkable except as noted in HPI and below Card Denies chest pain at rest, Denies chest pain with activity, Denies edema, Denies irregular heart rhythm, Denies claudication, Denies dyspnea, Denies dyspnea on exertion, Denies orthopnea, Denies paroxysmal nocturnal dyspnea and Denies slow heart rate Resp Denies cough, Denies dyspnea and Denies dyspnea on exertion GI Denies abdominal pain, Denies change in bowel habits, Denies excessive flatus, D enies nausea and Denies vomiting Neuro Denies behavioral changes and Denies lack of coordination Psych Denies behavioral changes Physical exam (Primary Care) Vital Signs: Last Vital Signs Pulse 66 04/02/25 08:58 BP 110/78 04/02/25 08:58 Pulse Ox 96 04/02/25 08:58 Oxygen Delivery Method Room Air 04/02/25 08:58 BMI result Body Mass Index 37.1 BMI Assessment/Plan discussion: High BMI High, discussed plan: lifestyle, weight reduction, dietary and physical activity Tobacco/Smoking Status: Tobacco use Status Tobacco use date assessed 04/02/25 04/02/25 09:04 Patient Tobacco Use Status Never used Tobacco 04/02/25 09:21 e-Cigarette/Vaping Use Never Used 04/02/25 09:21 PHQ-9: PHQ-9 Score PHQ-9: Total score 9 04/02/25 09:19 Depression Screening Interpretation: Positive Depression Screening Follow-up: Existing condition and Follow-up Visit Requested Thrive Assessment: Date of Thrive Assessment Date Thrive assessed 04/02/25 04/02/25 09:04 Currently or been in a relationship where the following occur: No concerns reported HENFL Head: Yes normal to inspection, Yes normocephalic and Yes atraumatic Ears: external ears normal Eyes General: appearance normal, both eyes and all related structures Eyelids: Yes eyelids normal Conjunctivae: conjunctivae normal Neck Neck: Yes normal visual inspection and Yes supple Resp Effort & Inspection: normal respiratory effort Auscultation: clear to auscultation bilaterally Cardio Jugular venous distension: no JVD Rate: regular rate Rhythm: regular rhythm Heart sounds: S1 normal heart sound present and S2 normal heart sound present GI Inspection: Yes normal to inspection Palpation (GI): Soft to palpation and nontender Auscultation: normal bowel sounds Skin General skin exam: no rashes or lesions noted Neuro General: no focal motor deficits Extrem General: Yes full ROM Psych Appearance: grossly normal Coding Level of Care Code Est Pt Level 3 (93556) Est Pt Prev Care 18-39y(78698) Diagnoses Physical exam Z00.00 Recurrent mild major depressive disorder with anxiety F33.0; F41.9 Left upper quadrant abdominal pain R10.12 Additional Codes SARA-7 Assessment Billing - SARA-7 Assessment Tool: SARA-7 Assessment 47394 ([id number]) PHQ-9 - 99096 - PHQ-9 Billing: Yes ([id number]) Time Spent (min) 31 Assessment & Plan Assessment & Plan (1) Physical exam: Code(s): Z00.00 - Encounter for general adult medical examination without abnormal findings Category: Medical (2) Recurrent mild major depressive disorder with anxiety: Code(s): F33.0 - Major depressive disorder, recurrent, mild; F41.9 - Anxiety disorder, unspecified Category: Medical (3) Left upper quadrant abdominal pain: Code(s): R10.12 - Left upper quadrant pain Category: Medical Plan Plan 1.Encounter For General Adult Medical Examination Without Abnormal Findings The patient is in for a physical exam. Fasting labs will be ordered as routine screening. The patient declined this year's flu shot. Discussion about weight management included advice on decreasing food intake for consecutive days to achieve weight loss. 2. Right Upper Quadrant Pain The patient reports sharp, random pain under the breast, which is not associated with exertion. An abdominal ultrasound will be ordered to further evaluate the cause of the pain. 3. Depressive Disorder, Unspecified The patient reports very mild, self-limited episodes of depression lasting one to two days, for which the patient does not take medication or seek counseling. No active intervention is required at this time. Orders: Orders Lipid Panel Today E78.5 - Hyperlipidemia, unspecified Comprehensive [place]. Panel Fast Today Z00.00 - Encounter for general adult medical examination without abnormal findings US abdomen limited Today R10.12 - Left upper quadrant pain
[2025-04-02 08:58] VITALS: BP 110/78; PULSE 66; O2SAT 96; BMI 37.1
== END 2025-04-02 09:29 | disposition home or self-care (01) ==
LOC: HO.HMCH 08:24
PROVIDERS: PCP Internal Medicine; Visit Provider Internal Medicine
DX: Z00.00 Encounter for general adult medical examination without abnormal findings (principal); R10.12 Left upper quadrant pain; F33.0 Major depressive disorder, recurrent, mild; F41.9 Anxiety disorder, unspecified